=== PATIENT | female | born 2000 | race Caucasian/White ===

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

== ENCOUNTER 2021-11-25 12:45 | Emergency (ER) | payer MEDICAID ==
[2021-11-25] VITALS (9 sets, daily range): BP systolic 63–117; BP diastolic 46–79
[~2021-11-25] VITALS: Ht 165.1 cm; Wt 59.0 kg
[~2021-11-25 12:45] MED LIST: MOTRIN800 MG PO
[2021-11-25 13:55] LABS: ALBUMIN 4.3 g/dL (3.2-5.0); ALKALINE PHOSPHATASE 38 u/l (38-126); BUN 10 mg/dL (7-17); BUN/CREATININE RATIO 16 (12-20 (CALC)); CARBON DIOXIDE 20 mmol/l (22-30); CHLORIDE 103 mmol/l (95-108); CREATININE 0.6 mg/dL (0.5-1.0); GFR FOR AFR.AMER. > 60 ML/MIN (>=60 (CALC)); GFR OTHER RACES > 60 ML/MIN (>=60 (CALC)); SGOT/AST 26 u/l (14-36); SODIUM 136 mmol/l (137-146); TOTAL PROTEIN 7.2 g/dL (6.3-8.2)
[2021-11-25 14:00] LABS: ANION GAP 16 (6-22 (CALC)); BILIRUBIN, TOTAL 0.5 mg/dL (0.0-1.4); POTASSIUM 2.9 mmol/l (3.5-5.1)
[2021-11-25 17:17] LABS: HEMATOCRIT 34.7 % (37.0-47.0); HEMOGLOBIN 11.7 g/dl (12.0-16.0); IMMATURE GRANULOCYTES 0.2 % (0.0-5.0); MEAN CELL VOLUME 93.3 fL CALC (80.0-100.0); MEAN CORPUSCULAR HGB 31.5 pG CALC (26.0-32.0); MEAN CORPUSCULAR HGB CONC 33.7 g/dL CAL (32.0-36.0); NEUT# 3.28 thou/uL (2.00-7.15); RED BLOOD COUNT 3.72 mill/uL (4.20-5.60); RED CELL DISTRI WIDTH 12.2 % (11.5-15.5)
[2021-11-25 18:06] LABS: URINE BILIRUBIN - DIPSTICK NEGATIVE (NEGATIVE); URINE BLOOD DIPSTICK TRACE-INTACT (NEGATIVE); URINE COLOR YELLOW; URINE GLUCOSE - DIPSTICK NEGATIVE (NEGATIVE); URINE KETONE TRACE mg/dL (NEGATIVE); URINE LEUK ESTERASE NEGATIVE (NEGATIVE); URINE PROTEIN - DIPSTICK NEGATIVE (NEG-TRACE); URINE SPECIFIC GRAVITY <=1.005; URINE UROBILINOGEN - DIPSTICK 0.2 E.U./dL (0.2)
[2021-11-25 18:13] LABS: URINE NITRITE - DIPSTICK NEGATIVE (Negative)
[2021-11-25] MEDS ORDERED: NAPROXEN500 MG PO (18:25)
[2021-11-25] MEDS ORDERED: TRAMADOL HCL50 MG PO (18:25)
[2021-11-25] MEDS ORDERED: POT CHLORIDE20 ME2 PO (18:27)
== END 2021-11-25 19:36 | disposition home or self-care (01) ==
LOC: ED 12:45
PROVIDERS: Family Medicine
DX: N94.6 Dysmenorrhea, unspecified (principal)
CPT/HCPCS: Q9967

== ENCOUNTER 2023-11-17 18:32 | Emergency (ER) | payer SELFPAY ==
[~2023-11-17] VITALS: Ht 165.1 cm; Wt 55.7 kg
[~2023-11-17 18:32] MED LIST changes: +NAPROXEN500 MG PO; +POT CHLORIDE20 ME2 PO; +TRAMADOL HCL50 MG PO
[2023-11-17 18:45] VITALS: BP 121/78
[2023-11-17] MEDS ORDERED: predniSONE 20 MG/TAB PO ONE (18:50)
[2023-11-17] MEDS ORDERED: PREDNISONE50 MG PO (18:53)
[2023-11-17 19:00] VITALS: BP 128/80
[2023-11-17 19:15] VITALS: BP 130/76
[2023-11-17 19:20] VITALS: BP 130/76
[2023-11-18] MEDS ORDERED: PREDNISONE50 MG PO (11:49)
== END 2023-11-17 19:20 | disposition home or self-care (01) | DRG 916 ==
LOC: ED 18:32
DX: T78.40XA Allergy, unspecified, initial encounter (principal); X58.XXXA Exposure to other specified factors, initial encounter